=== PATIENT | male | born 1970 | race Caucasian/White ===

== ENCOUNTER 2023-10-19 06:25 | Day surgery (SDC) | payer OTHER ==
[~2023-10-19 06:25] MED LIST: Sodium Chloride 0.9% 10 ML Syringe FLUSH PRN
[2023-10-19] MEDS ORDERED: Midazolam 1 MG/ML 2 ML SDV IV ONE (06:26)
[2023-10-19] MEDS ORDERED: Propofol 200 MG/20 ML SDV IV ONE (06:26)
[2023-10-19] MEDS ORDERED: Lidocaine 2% 100 MG/5 ML Syringe IVPUSH ONE (06:26)
[2023-10-19] MEDS: Lactated Ringers 1,000 ML IV SCH (07:00)
[2023-10-19] MEDS: Simethicone Drops 40 MG/0.6 ML 30 ML Bottle ONE (07:32)
[2023-10-19 09:34] VITALS: BP 105/67; PULSE 75
== END 2023-10-19 09:20 | disposition home or self-care (01) ==
LOC: FB.SDS 06:25
PROVIDERS: ATTEND Surgery
DX: Z12.11 Encounter for screening for malignant neoplasm of colon (principal); F41.9 Anxiety disorder, unspecified; Z79.899 Other long term (current) drug therapy; Z86.010 Personal history of colon polyps; Z80.0 Family history of malignant neoplasm of digestive organs
CPT/HCPCS: A9270-GY; J2250; J2704; J7120

== ENCOUNTER 2024-07-14 01:19 | Emergency (ER) | payer OTHER ==
[2024-07-14] MEDS: Albuterol/Ipratropium 3.0-0.5 MG/3 ML Neb Soln NEB ONE (01:30)
[2024-07-14] MEDS: Sodium Chloride 0.9% 1,000 ML IV ONE (01:41)
[2024-07-14] MEDS: methylPREDNISolone Sodium Succinate 125 MG/2 ML SDV IVPUSH ONE (01:41)
[2024-07-14] MEDS: Acetaminophen 500 MG Tab PO ONE (01:43)
[2024-07-14 01:59] LABS: BLOOD UREA NITROGEN,BUN 18 mg/dL (7-18); CALCIUM 8.8 mg/dL (8.6-10.2); CARBON DIOXIDE,CO2 26 mmol/L (21-32); CHLORIDE,CL 105 mmol/L (100-110); ESTIMATED GFR 90 mL/min (>60); GLUCOSE RANDOM 110 mg/dL (80-116); POTASSIUM,K 3.8 mmol/L (3.5-5.3); SODIUM,NA 139 mmol/L (135-145)
[2024-07-14 02:00] LABS: BASOPHILS PERCENT AUTO 0.4 % (0.3-3.8); EOSINOPHILS ABSOLUTE AUTO 0.2 x10-3/uL (0.0-0.6); EOSINOPHILS PERCENT AUTO 1.9 % (0.1-6.8); HEMATOCRIT 45.8 % (38.3-50.1); HEMOGLOBIN 15.8 g/dL (12.9-17.7); LYMPHOCYTES ABSOLUTE AUTO 0.9 x10-3/uL (0.5-4.5); LYMPHOCYTES PERCENT AUTO 10.2 % (15.8-45.3); MEAN CORPUSCULAR HEMOGLOBIN 29.6 pg (27.0-33.3); MEAN CORPUSCULAR HGB CONC 34.5 g/dL (28.7-35.3); MEAN CORPUSCULAR VOLUME 85.8 fL (80.8-98.7); MEAN PLATELET VOLUME 8.5 fL (6.7-11.0); MONOCYTES ABSOLUTE AUTO 0.7 x10-3/uL (0.0-1.2); MONOCYTES PERCENT AUTO 8.2 % (5.5-15.2); NEUTROPHILS ABSOLUTE AUTO 6.6 x10-3/uL (1.7-6.9); NEUTROPHILS PERCENT AUTO 79.3 % (40.3-71.8); PLATELET COUNT,PLT 213 x10(3)uL (117-477); RED BLOOD CELL COUNT 5.34 x10(6)uL (3.90-5.90); RED CELL DISTRIBUTION WIDTH 12.9 % (12.4-15.0); WHITE BLOOD CELL COUNT,WBC 8.3 x10-3/uL (3.2-10.1)
[2024-07-14 02:05] LABS: A/G RATIO 1.2; ALANINE AMINOTRANSFERASE,ALT 54 U/L (12-36); ALBUMIN 3.8 g/dL (3.5-5.2); ALKALINE PHOSPHATASE 58 IU/L (56-112); ASPARTATE AMNIOTRANSFERASE,AST 20 IU/L (5-25); BILIRUBIN TOTAL 0.7 mg/dL (0.1-1.3); PROTEIN TOTAL,TP 6.9 g/dL (6.0-8.0)
[2024-07-14 02:27] LABS: INFLUENZA A NAA POSITIVE (NEGATIVE); INFLUENZA B NAA NEGATIVE (NEGATIVE); RESPIRATORY SYNCYTIAL VIR NAA NEGATIVE (NEGATIVE)
[2024-07-14 02:30] LABS: CORONAVIRUS COVID-19 NAA NEGATIVE (NEGATIVE)
[2024-07-14] MEDS: Iopamidol 755 Mg/ML 100 ML Bottle IV SCH (02:53)
[2024-07-14] MEDS ORDERED: HYDROmorphone 2 MG/ML SDV IVPUSH ONE (03:02)
[2024-07-14] MEDS: Oseltamivir 75 MG Cap PO ONE (03:33)
[2024-07-14 04:02] VITALS: BP 146/92; PULSE 111
[2024-07-14] MEDS ORDERED: Iopamidol 755 Mg/ML 100 ML Bottle IV SCH (14:35)
== END 2024-07-14 04:04 | disposition home or self-care (01) ==
LOC: FB.ED 01:19
DX: J10.1 Influenza due to other identified influenza virus with other respiratory manifestations (principal); Z86.16 Personal history of COVID-19
CPT/HCPCS: 0241U; 71275; 80053; 84484; 85025; 93005; 93010; 94640; 96361; 96374; 99284; 99285-25; A9270-GY; J2919; J7030; J7620; Q9967